=== PATIENT | female | born 1950 | race Caucasian/White ===

== ENCOUNTER 2019-04-06 08:50 | Day surgery (SDC) | payer OTHER ==
[~2019-04-06] VITALS: Ht 167.6 cm; Wt 88.1 kg
[~2019-04-06 08:50] MED LIST: ASCO500 PO; ELIQUIS2.5 MG PO; Estradiol0.5 MG PO; VITAMIN D35000 UNIT PO
[2019-04-06] MEDS ORDERED: Fish Oil 1,0001 EAC3 (09:50)
== END 2019-04-06 11:27 | disposition home or self-care (01) ==
LOC: ORSCSDS 08:50
PROVIDERS: Internal Medicine Gastroenterology
PROC: 0DB68ZX Excision of Stomach, Via Natural or Artificial Opening Endoscopic, Diagnostic (ICD-10-PCS; principal; 2019-04-06 10:15)
PROC: 0DB58ZX Excision of Esophagus, Via Natural or Artificial Opening Endoscopic, Diagnostic (ICD-10-PCS; principal; 2019-04-06 10:15)
PROC: 0DB98ZX Excision of Duodenum, Via Natural or Artificial Opening Endoscopic, Diagnostic (ICD-10-PCS; principal; 2019-04-06 10:15)
PROC: 0DBH8ZX Excision of Cecum, Via Natural or Artificial Opening Endoscopic, Diagnostic (ICD-10-PCS; principal; 2019-04-06 10:15)
PROC: 0DBL8ZX Excision of Transverse Colon, Via Natural or Artificial Opening Endoscopic, Diagnostic (ICD-10-PCS; principal; 2019-04-06 10:15)
DX: K21.0 Gastro-esophageal reflux disease with esophagitis (principal); R14.0 Abdominal distension (gaseous); K22.70 Barrett's esophagus without dysplasia; K29.80 Duodenitis without bleeding; K44.9 Diaphragmatic hernia without obstruction or gangrene; K22.2 Esophageal obstruction; Z12.11 Encounter for screening for malignant neoplasm of colon; D12.0 Benign neoplasm of cecum; D12.3 Benign neoplasm of transverse colon; K57.30 Diverticulosis of large intestine without perforation or abscess without bleeding; K64.8 Other hemorrhoids; Z79.899 Other long term (current) drug therapy
CPT/HCPCS: 88305; 88312; 88342; J2704; J7120

== ENCOUNTER 2020-04-20 10:08 | Day surgery (SDC) | payer OTHER ==
[~2020-04-20] VITALS: Ht 167.6 cm; Wt 89.6 kg
[~2020-04-20 10:08] MED LIST changes: +CENTRUM SILVER1 EAC2 PO; +CHLO25B PO; +Fish Oil 1,0001 EAC3; +HYDR1TAB94 PO; +OMEP20ER PO; +TOCO1000 PO; +TYLENOL ARTHRITIS PO
--- NOTE | 2020-04-20 12:16 | NUR ---
ASSUMED CARE OF PATIENT NO CHANGE. NO NEEDS FROM PATIENT
--- NOTE | 2020-04-20 12:32 | NUR ---
EXPLAINED DELAY TO PAITENT PAT EXPRESSES UNDERSTANDING
--- NOTE | 2020-04-20 13:00 | NUR ---
UP TO BATHROOM AT THIS TIME
--- NOTE | 2020-04-20 15:28 | NUR ---
Patient up to Ambulate independently. Gait steady. Discharge instructions reviewed with patient. Patient verbalizes understanding. Copy given to patient to take home. Patient States Post-Procedure ride home has been arranged. Discharged via wheelchair to private car for ride home. Dressing to procedure site clean, dry, intact with no visible drainage, swelling, erythema or bruising noted. PT SENT HOME WITH [facility] Private Location [employer], ALL QUESTIONS ANSWERED. ALL BELONGINGS RETURNED TO [facility].
== END 2020-04-20 22:55 | disposition home or self-care (01) ==
LOC: ORSCMMR 10:08 → ORD 12:00 → ORSCMMR 22:55
PROVIDERS: Surgery
PROC: 0JH60WZ Insertion of Totally Implantable Vascular Access Device into Chest Subcutaneous Tissue and Fascia, Open Approach (ICD-10-PCS; principal; 2020-04-20 12:00)
DX: C49.9 Malignant neoplasm of connective and soft tissue, unspecified (principal); I10 Essential (primary) hypertension; E78.5 Hyperlipidemia, unspecified; Z86.718 Personal history of other venous thrombosis and embolism; Z79.01 Long term (current) use of anticoagulants
CPT/HCPCS: 77001; 93005; 93010; A9270-GY; C1788; J0690; J1100; J1642; J2250; J2370; J2405; J2704; J2765; J3010; J7120